=== PATIENT | female | born 1955 | race Caucasian/White ===

== ENCOUNTER 2023-04-04 12:40 | Day surgery (SDC) | payer OTHER ==
[~2023-04-04] VITALS: Ht 157.5 cm; Wt 99.8 kg
[2023-04-04 12:15] VITALS: O2SAT 97
[2023-04-04] MEDS ORDERED: MEPERIDINE 100 MG INJ. 100 MG/ML VIAL ONE (12:45)
[2023-04-04] MEDS: fentaNYL CITRATE/PF 100 MCG/2 ML AMP ONE (12:52)
[2023-04-04] MEDS: MIDAZOLAM HCL 5 MG/5 ML VIAL ONE (12:52)
[2023-04-04 16:38] VITALS: BP_SYST 124; PULSE 96; RESP 19
== END 2023-04-04 14:22 | disposition home or self-care (01) ==
LOC: SDS 12:40 → SMU 12:41 → EDUNIT# 13:00 → SDS 14:22
PROVIDERS: ATTEND Surgery
DX: K59.00 Constipation, unspecified (principal); K62.1 Rectal polyp; K57.30 Diverticulosis of large intestine without perforation or abscess without bleeding; K64.8 Other hemorrhoids; R10.84 Generalized abdominal pain; Z79.899 Other long term (current) drug therapy
CPT/HCPCS: 45380; 99152; 88305; 99153; G0378; J2250; J3010; 45385; J2175

== ENCOUNTER 2023-10-03 12:38 | Day surgery (SDC) | payer OTHER ==
[~2023-10-03] VITALS: Ht 157.5 cm; Wt 99.8 kg
[~2023-10-03 12:38] MED LIST: CEFAZOLIN SOD 1 GM in D5W 50 ML IV ONE
[2023-10-03 14:29] VITALS: BP_SYST 118; PULSE 77; RESP 20; TEMP 97.3; O2SAT 95
== END 2023-10-03 16:35 | disposition home or self-care (01) ==
LOC: SDS 12:38 → SMU 12:39 → SDS 16:35
PROVIDERS: ATTEND Surgery
DX: K80.50 Calculus of bile duct without cholangitis or cholecystitis without obstruction (principal); Z53.8 Procedure and treatment not carried out for other reasons; I10 Essential (primary) hypertension; E78.5 Hyperlipidemia, unspecified; Z98.890 Other specified postprocedural states; Z79.899 Other long term (current) drug therapy
CPT/HCPCS: 87081 ×2; J0690; J7060